=== PATIENT | female | born 1965 | race Two or more races ===

== ENCOUNTER → 2024-05-16 | Outpatient (CLI) | payer MEDICAID, SELFPAY ==
--- NOTE | 2024-05-16 | XR_ITS ---
Examination: Wrist, right 3 views Technique: Wrist AP, oblique, lateral 3 views Date and time of exam: May 16, 2024 1137 hours INDICATIONS: Patient fell one month ago with injury to the wrist, wrist pain FINDINGS: Subacute healing fracture distal radial metaphysis Satisfactory alignment Mildly displaced fracture ulnar styloid tip Carpal bones intact IMPRESSION: Subacute healing fracture distal radial metaphysis without significant displacement
== END | disposition home or self-care (01) ==
PROVIDERS: PCP Nurse Practitioner Gerontology; Referring Provider Nurse Practitioner Gerontology; Visit Provider Nurse Practitioner Gerontology
DX: S52.91XA Unspecified fracture of right forearm, initial encounter for closed fracture (principal); W19.XXXA Unspecified fall, initial encounter
CPT/HCPCS: 73110

== ENCOUNTER → 2025-02-11 | Outpatient (CLI) | payer MEDICAID, SELFPAY ==
--- NOTE | 2025-02-11 08:15 | XR_ITS ---
Examination: Screening digital mammography, bilateral Computer aided detection 3-D breast Tomosynthesis, bilateral Date and time of exam: February 11, 2025, 0746 hours Compared to mammograms dating to January 21, 2021 Indication: Screening Technique: Nonmagnified MLO, CC views of the breasts to been obtained, reconstructed from 3-D Tomosynthesis images. R2 computer aided detection program utilized for evaluation of suspicious masses and/or abnormal calcifications. 3-D Tomosynthesis images obtained. Findings: The breasts are heterogeneously dense, which may obscure small masses Benign calcifications. No interval suspicious masses Impression: BI-RADS category II: Benign Findings. Recommend 1 year follow-up mammogram.
== END | disposition home or self-care (01) ==
LOC: CDIM 07:38
PROVIDERS: Referring Provider Family Medicine; Visit Provider Family Medicine
DX: Z12.31 Encounter for screening mammogram for malignant neoplasm of breast (principal); R92.323 Mammographic fibroglandular density, bilateral breasts; R92.1 Mammographic calcification found on diagnostic imaging of breast
CPT/HCPCS: 77063; 77067